=== PATIENT | male | born 1945 | race Caucasian/White ===

== ENCOUNTER 2016-07-19 06:46 | Outpatient (CLI) | payer MEDICARE, BC ==
[2006-01-20 19:35] VITALS: BP 130/74
[2016-07-19] VITALS (10 sets, daily range): BP systolic 117–144; BP diastolic 70–84; PULSE 60–75; TEMP 97.2
[~2016-07-19] VITALS: Ht 177.8 cm; Wt 100.0 kg
[~2016-07-19 06:46] MED LIST: ALLOPURINOL300 MG PO; ASPIRIN 81M81 MG/TA2 PO; ASPIRIN E.C. 8181 MG PO; ASPIRIN EXTRA500 M1 PO; AVANDAMET; AVANDIA2 MG PO; AVODART 0.5MG0.5 MG PO; BEELITH; BEELITH PO; CELEBREX 200MG200 MG PO; CENTRUM1 TAB PO; CRESTOR40 MG PO; DOXYCYCLINE 10100 MG PO; FINASTERIDE5 MG PO; GLUCOPHAGE500 MG/TAB PO; GLUCOSAMINE & C1 CA1 PO; IBUPRIN200 MG PO; LASIX 40MG TABL40 MG PO; LIQUID MAGNESI400 MG PO; METFORMIN HCL500 MG PO; NATURAL MAGNES200 MG PO; NORCO 325 MG-7.1 TAB PO; PERCOCET 325 MG1 TA2 PO; PRAVACHOL80 MG PO; PRILOSEC 20MG20 MG PO; PROSCAR 5MG5 MG PO; PROTONIX 40MG T40 MG PO; ULTRAM 50MG TAB50 MG PO; VITAMIN B610 MG PO; VITAMIN C500 MG PO; VITAMIN D 1001000 IU PO; VITAMIN D32000 IU PO; XARELTO10 MG PO; ZYLOPRIM 300MG300 MG PO
[2016-07-19 07:48] LABS: INR 1.6 (0.8-3.0); PROTHROMBIN TIME 17.9 SECONDS (9.7-12.8)
[2016-07-19 07:58] LABS: CREATININE, serum 0.85 mg/dL (0.66-1.25); POTASSIUM 4.2 mmol/L (3.4-5.0)
[2016-07-19 08:02] LABS: HEMATOCRIT 38.7 % (42.0-52.0); MEAN CELL VOLUME 93 fl (80.0-100.0); MEAN CORPUSCULAR HEMOGLOBIN 31 pg (27.0-31.0); MEAN CORPUSCULAR HGB CONC 34 g/dl (33.0-37.0); MEAN PLATELET VOLUME 9.5 fl (7.4-10.4); PLATELET COUNT 169 K/mm3 (130-400); RED BLOOD COUNT 4.17 M/mm3 (4.20-5.60); REDCELL DISTRIBUTION WIDTH-CV 13.9 % (11.5-14.5)
[2016-07-19] MEDS ORDERED: LIPITOR 40MG TA40 MG PO (08:15)
[2016-07-19] MEDS ORDERED: IMIQUIMOD5% TP (08:21)
[2016-07-19] MEDS ORDERED: NEURONTIN300 MG/CAP PO (08:22)
[2016-07-19] MEDS ORDERED: ELIQUIS 5MG PO (10:06)
== END 2016-07-19 10:35 | disposition home or self-care (01) ==
LOC: COL.RAD 06:46
PROVIDERS: Internal Medicine Cardiovascular Disease
DX: I51.0 Cardiac septal defect, acquired (principal); I37.1 Nonrheumatic pulmonary valve insufficiency; R94.31 Abnormal electrocardiogram [ECG] [EKG]
CPT/HCPCS: J2704

== ENCOUNTER 2017-03-28 09:30 | Outpatient (RCR) | payer MEDICARE, BC ==
[~2017-03-28 09:30] MED LIST changes: +ELIQUIS 5MG PO; +IMIQUIMOD5% TP; +LIPITOR 40MG TA40 MG PO; +NEURONTIN300 MG/CAP PO
== END 2017-03-30 10:50 | disposition home or self-care (01) ==
LOC: WSPT 09:30
DX: M54.5 Low back pain (principal)
CPT/HCPCS: G8978-GP; G8979-GP; G8980-GP

== ENCOUNTER → 2018-08-02 | Outpatient (CLI) | payer MEDICARE, BC | LOC: COL.RAD 13:33 | DX: M16.11 Unilateral primary osteoarthritis, right hip (principal); Z96.642 Presence of left artificial hip joint ==

== ENCOUNTER 2018-10-04 08:56 | Emergency (ER) | payer MEDICARE, BC ==
[2006-01-20 19:35] VITALS: BP 130/74
[~2018-10-04] VITALS: Ht 177.8 cm; Wt 113.6 kg
[2018-10-04 09:01] VITALS: BP 130/80
[2018-10-04] MEDS ORDERED: CRESTOR40 MG PO (09:50)
[2018-10-04] MEDS ORDERED: PRAVACHOL80 MG PO (09:51)
[2018-10-04] MEDS ORDERED: GLUCOPHAGE500 MG/TAB PO (09:51)
[2018-10-04] MEDS ORDERED: AVANDIA2 MG PO (09:52)
[2018-10-04] MEDS ORDERED: MULTI VITAMINS1 TAB PO (09:53)
[2018-10-04 10:06] LABS: STREP SCREEN NEGATIVE
[2018-10-04 11:16] LABS: ALBUMIN 4.2 gm/dL (3.5-5.0); BILIRUBIN,TOTAL 0.7 mg/dL (0.0-1.0); CALCIUM 9.8 mg/dL (8.4-10.2); CREATININE, serum 0.92 (0.66-1.25); POTASSIUM 4.6 mmol/L (3.4-5.0); TOTAL PROTEIN 7.9 gm/dL (6.4-8.2)
[2018-10-04 11:26] LABS: BASO # 0.1 (0.0-0.2); BASO % 0.7 % (0.0-2.0); EOS # 0.5 (0.0-0.7); GRAN # 6.9 (1.4-6.5); GRAN % 58.2 % (42.2-75.2); HEMATOCRIT 49.4 % (42.0-52.0); HEMOGLOBIN 16.3 g/dl (13.5-18.0); LYMPH # 3.4 (1.2-3.4); LYMPH % 28.6 % (20.0-51.0); MEAN CELL VOLUME 87 fl (80.0-100.0); MEAN CORPUSCULAR HEMOGLOBIN 29 pg (27.0-31.0); MEAN CORPUSCULAR HGB CONC 33 g/dl (33.0-37.0); MEAN PLATELET VOLUME 9.6 fl (7.4-10.4); MONO % 8.2 % (1.7-9.3); PLATELET COUNT 198 K/mm3 (130-400); RED BLOOD COUNT 5.67 M/mm3 (4.20-5.60); REDCELL DISTRIBUTION WIDTH-CV 19.1 % (11.5-14.5)
[2018-10-04] MEDS ORDERED: DOXYCYCLINE 10100 MG PO (11:44)
[2018-10-04] MEDS ORDERED: TESSALON PERLE200 MG PO (11:44)
[2018-10-04 12:14] VITALS: PULSE 85; TEMP 97.4
== END 2018-10-04 12:14 | disposition home or self-care (01) ==
LOC: COL.ER 08:56
PROVIDERS: Physician Assistant
DX: J20.9 Acute bronchitis, unspecified (principal); J02.9 Acute pharyngitis, unspecified; E11.9 Type 2 diabetes mellitus without complications; I10 Essential (primary) hypertension; Z79.84 Long term (current) use of oral hypoglycemic drugs; Z87.891 Personal history of nicotine dependence; Z86.73 Personal history of transient ischemic attack (TIA), and cerebral infarction without residual deficits; Z88.5 Allergy status to narcotic agent; Z98.890 Other specified postprocedural states; Z79.82 Long term (current) use of aspirin
CPT/HCPCS: J1885

== ENCOUNTER → 2019-12-08 | Outpatient (CLI) | payer MEDICARE, BC ==
[~2019-12-08] MED LIST changes: +MULTI VITAMINS1 TAB PO; +TESSALON PERLE200 MG PO
== END ==
LOC: DIA.ED
DX: E11.9 Type 2 diabetes mellitus without complications (principal); E66.8 Other obesity; Z79.4 Long term (current) use of insulin

== ENCOUNTER → 2019-12-09 | Outpatient (CLI) | payer MEDICARE, BC | LOC: COL.RAD 10:07 | DX: M48.061 Spinal stenosis, lumbar region without neurogenic claudication (principal); M51.36 Other intervertebral disc degeneration, lumbar region; M47.816 Spondylosis without myelopathy or radiculopathy, lumbar region; M47.817 Spondylosis without myelopathy or radiculopathy, lumbosacral region; Z98.1 Arthrodesis status | CPT/HCPCS: A9585 ==

== ENCOUNTER → 2020-05-03 | Outpatient (CLI) | payer MEDICARE, BC | LOC: DIA.ED 03-29 08:07 | DX: E11.9 Type 2 diabetes mellitus without complications (principal); Z79.84 Long term (current) use of oral hypoglycemic drugs; E66.8 Other obesity; Z68.36 Body mass index [BMI] 36.0-36.9, adult | CPT/HCPCS: G0270 ==

== ENCOUNTER → 2020-05-31 | Outpatient (CLI) | payer MEDICARE, BC ==
[~2020-05-31] MED LIST changes: +CARTIA XT180 MG PO; +GLUCOPHAGE XR500 M1 PO; +PLAVIX 75MG TAB75 MG PO; +TRELEGY ELLIPT1 EACH IH; +TRESIBA FL100 UNIT/1 SQ; +TYLENOL W/COD1 UDTAB PO
== END ==
LOC: DIA.ED
DX: E11.9 Type 2 diabetes mellitus without complications (principal); Z79.4 Long term (current) use of insulin
CPT/HCPCS: G0108

== ENCOUNTER → 2020-09-27 | Outpatient (CLI) | payer MEDICARE, BC | LOC: DIA.ED 08:57 | DX: E11.59 Type 2 diabetes mellitus with other circulatory complications (principal); Z79.4 Long term (current) use of insulin; E66.8 Other obesity | CPT/HCPCS: G0270 ==

== ENCOUNTER 2020-12-29 17:07 | Emergency (ER) | payer MEDICARE, BC ==
[~2020-12-29] VITALS: Ht 177.8 cm; Wt 118.2 kg
[~2020-12-29 17:07] MED LIST changes: -CARTIA XT180 MG PO; -GLUCOPHAGE XR500 M1 PO; -PLAVIX 75MG TAB75 MG PO; -TRELEGY ELLIPT1 EACH IH; -TRESIBA FL100 UNIT/1 SQ; -TYLENOL W/COD1 UDTAB PO
[2020-12-29 17:42] LABS: BASO # 0.1 (0.0-0.2); BASO % 0.5 % (0.0-2.0); EOS # 0.2 (0.0-0.7); EOS % 2.1 % (0-4.0); GRAN # 6.9 (1.4-6.5); HEMOGLOBIN 17.9 g/dl (13.5-18.0); LYMPH # 2.2 (1.2-3.4); LYMPH % 21.3 % (20.0-51.0); MEAN CELL VOLUME 84 fl (80.0-100.0); MEAN CORPUSCULAR HEMOGLOBIN 27 pg (27.0-31.0); MEAN CORPUSCULAR HGB CONC 33 g/dl (33.0-37.0); MONO % 9.5 % (1.7-9.3); PLATELET COUNT 242 K/mm3 (130-400); RED BLOOD COUNT 6.53 M/mm3 (4.20-5.60); REDCELL DISTRIBUTION WIDTH-CV 18.6 % (11.5-14.5)
[2020-12-29 17:44] LABS: HEMATOCRIT 54.5 % (42.0-52.0)
[2020-12-29 17:53] LABS: ALANINE AMINOTRANSFERASE 48 U/L (4-49); ALKALINE PHOSPHATASE 64 U/L (50-136); ANION GAP 7 mmol/L (7-16); AST,SGOT 29 U/L (15-37); BILIRUBIN,TOTAL 0.4 mg/dL (0.0-1.0); BLOOD UREA NITROGEN 21 mg/dL (9-20); CALCIUM 9.4 mg/dL (8.4-10.2); CARBON DIOXIDE 27 mmol/L (22-30); CHLORIDE 102 mmol/L (98-107); CREATININE, serum 1.11 (0.66-1.25); GLUCOSE 157 mg/dL (74-106); POTASSIUM 4.5 mmol/L (3.4-5.0); SODIUM 136 mmol/L (137-145); TOTAL PROTEIN 7.5 gm/dL (6.4-8.2)
[2020-12-29 18:14] LABS: TROPONIN-I < 0.012 ng/mL (0.000-0.035)
[2020-12-29] MEDS ORDERED: TYLENOL W/COD1 UDTAB PO (20:45)
[2020-12-29 20:50] VITALS: BP 165/89; PULSE 74; TEMP 98.4
[2020-12-30] MEDS ORDERED: TRELEGY ELLIPT1 EACH IH (05:25)
[2020-12-30] MEDS ORDERED: TRESIBA FL100 UNIT/1 SQ (05:26)
[2020-12-30] MEDS ORDERED: PLAVIX 75MG TAB75 MG PO (05:26)
[2020-12-30] MEDS ORDERED: PRILOSEC 20MG20 MG PO (05:29)
[2020-12-30] MEDS ORDERED: GLUCOPHAGE XR500 M1 PO (05:29)
[2020-12-30] MEDS ORDERED: CARTIA XT180 MG PO (06:02)
[2020-12-30] MEDS ORDERED: ELIQUIS 5MG PO (06:03)
== END 2020-12-29 20:30 | disposition home or self-care (01) ==
LOC: COL.ER 17:07
PROVIDERS: Personal Emergency Response Attendant
DX: R07.2 Precordial pain (principal); E78.5 Hyperlipidemia, unspecified; I10 Essential (primary) hypertension; Z86.73 Personal history of transient ischemic attack (TIA), and cerebral infarction without residual deficits; Z79.899 Other long term (current) drug therapy
CPT/HCPCS: J2405; J3010; Q9967

== ENCOUNTER 2020-12-30 03:38 | Observation (INO) | payer MEDICARE, BC ==
[2006-01-20 19:35] VITALS: BP 130/74
[2020-12-30] VITALS (217 sets, daily range): BP systolic 112–134; BP diastolic 56–79; PULSE 70–84; TEMP 97.9–99.1; O2SAT 84–98
[~2020-12-30] VITALS: Ht 177.8 cm; Wt 113.0 kg
[~2020-12-30 03:38] MED LIST changes: +TYLENOL W/COD1 UDTAB PO
[2020-12-30 04:05] LABS: BASO # 0.1 (0.0-0.2); BASO % 0.7 % (0.0-2.0); EOS # 0.3 (0.0-0.7); EOS % 2.9 % (0-4.0); GRAN % 63.5 % (42.2-75.2); HEMATOCRIT 56.3 % (42.0-52.0); HEMOGLOBIN 18.5 g/dl (13.5-18.0); LYMPH # 2.1 (1.2-3.4); LYMPH % 21.7 % (20.0-51.0); MEAN CELL VOLUME 85 fl (80.0-100.0); MEAN CORPUSCULAR HEMOGLOBIN 28 pg (27.0-31.0); MEAN CORPUSCULAR HGB CONC 33 g/dl (33.0-37.0); MEAN PLATELET VOLUME 9.9 fl (7.4-10.4); MONO % 10.7 % (1.7-9.3); PLATELET COUNT 224 K/mm3 (130-400); RED BLOOD COUNT 6.63 M/mm3 (4.20-5.60); REDCELL DISTRIBUTION WIDTH-CV 18.6 % (11.5-14.5)
[2020-12-30 04:35] LABS: ARTERIAL BLOOD GAS BASE EXCESS 1.3 (-2-2)
[2020-12-30 04:36] LABS: ARTERIAL BLOOD GAS HCO3 24.2 meq/L (22-26); ARTERIAL BLOOD GAS PCO2 41.1 mmHg (35-45); ARTERIAL BLOOD GAS PO2 70.7 mmHg (80-100); ARTERIAL BLOOD GAS pH 7.38 (7.35-7.45)
[2020-12-30 04:37] LABS: ARTERIAL BLD GAS TCO2 CT 25.5
[2020-12-30 04:55] LABS: ALANINE AMINOTRANSFERASE 37 U/L (4-49); ALBUMIN 3.1 gm/dL (3.5-5.0); ALKALINE PHOSPHATASE 45 U/L (50-136); ANION GAP 4 mmol/L (7-16); AST,SGOT 23 U/L (15-37); BILIRUBIN,TOTAL 0.5 mg/dL (0.0-1.0); BLOOD UREA NITROGEN 18 mg/dL (9-20); CALCIUM 8.1 mg/dL (8.4-10.2); CARBON DIOXIDE 28 mmol/L (22-30); CHLORIDE 105 mmol/L (98-107); CREATININE, serum 1.09 (0.66-1.25); GLUCOSE 135 mg/dL (74-106); POTASSIUM 4.4 mmol/L (3.4-5.0); SODIUM 137 mmol/L (137-145); TOTAL PROTEIN 6.1 gm/dL (6.4-8.2)
[2020-12-30 05:07] LABS: TROPONIN-I < 0.012 ng/mL (0.000-0.035)
[2020-12-30] MEDS ORDERED: TRELEGY ELLIPT1 EACH IH (05:25)
[2020-12-30] MEDS ORDERED: TRESIBA FL100 UNIT/1 SQ (05:26)
[2020-12-30] MEDS ORDERED: PLAVIX 75MG TAB75 MG PO (05:26)
[2020-12-30] MEDS ORDERED: GLUCOPHAGE XR500 M1 PO (05:29)
[2020-12-30] MEDS ORDERED: PRILOSEC 20MG20 MG PO (05:29)
[2020-12-30] MEDS ORDERED: CARTIA XT180 MG PO (06:02)
[2020-12-30] MEDS ORDERED: ELIQUIS 5MG PO (06:03)
[2020-12-30 07:46] LABS: CHOLESTEROL 127 mg/dL (120-200); CHOLESTEROL RISK RATIO 3.3; HDL CHOLESTEROL 38 mg/dL; LDL CHOLESTEROL 63 mg/dL; MAGNESIUM 2.3 mg/dL (1.6-2.3); TRIGLYCERIDE 130 mg/dL
--- NOTE | 2020-12-30 12:15 | NUR ---
Pt off unit for stress-test
--- NOTE | 2020-12-30 13:38 | NUR ---
Pt back and tolerated Lexiscan well, no complaints at this time. MD Jessica notifed pt back. Pt educated on potential plans of care depending on results of scan. No further questions
--- NOTE | 2020-12-30 14:38 | NUR ---
[employer]os[employer] Dis[employer] Manager met with patient and patient's , Terri (ph#[phone]) who is at bedside to discuss discharge planning. Patient lives outside of [place] with his and sees Dr. Sequeira for primary care. Patient obtains medications from [facility] with no difficulties. Patient uses a CPAP from [employer] and no other DME. Patient does not normally use oxygen however is currently requiring it. Patient reports independence with ADLS and plans to return home upon discharge. Patient does not have Advance Directives and is not interested in completing DPOA at this time. Discharge Plan: Home
--- NOTE | 2020-12-30 18:25 | NUR ---
Pt transfered to [facility] via wheelchair without difficulty. Pt independent in room
--- NOTE | 2020-12-30 19:30 | NUR ---
Patient states he came to the medical unit at 1800. RIght now he is alert and oriented x 4. Denies nausea and vomiting but pain in stomac 08/16. Will Check later with medications and full assessment.
--- NOTE | 2020-12-30 20:00 | NUR ---
Patient is resting in bed, alert and oriented x 4, complains of pain in the stomach, high in the abdomen, rated 6/10, Morphine provided. RT started 2L of , since O2 levels were in higher 80's. Assessment completed, meds provided, no further needs at this time. Call light within reach.
[2020-12-31] VITALS (7 sets, daily range): BP systolic 131–154; BP diastolic 60–75; PULSE 63–77; TEMP 97.8–99.1
--- NOTE | 2020-12-31 07:17 | NUR ---
Patient has had a calm night. He indicates his pain is under control with morphine. Just one dose was provided at night. His complain is about having a bowel movement. Supository was offered but he denied. Shift report given to day nurse.
[2020-12-31 08:15] LABS: HEMOGLOBIN 17.3 g/dl (13.5-18.0); MEAN CELL VOLUME 88 fl (80.0-100.0); MEAN CORPUSCULAR HEMOGLOBIN 27 pg (27.0-31.0); MEAN CORPUSCULAR HGB CONC 31 g/dl (33.0-37.0); MEAN PLATELET VOLUME 9.6 fl (7.4-10.4); PLATELET COUNT 200 K/mm3 (130-400); RED BLOOD COUNT 6.38 M/mm3 (4.20-5.60); REDCELL DISTRIBUTION WIDTH-CV 18.8 % (11.5-14.5)
[2020-12-31 08:25] LABS: HEMATOCRIT 56.3 % (42.0-52.0)
[2020-12-31 08:36] LABS: CALCIUM 9.4 mg/dL (8.4-10.2); CREATININE, serum 1.05 mg/dL (0.72-1.25); POTASSIUM 4.2 mmol/L (3.5-4.5)
--- NOTE | 2020-12-31 09:12 | NUR ---
Patient resting in bed upon entrance to room. Fluids running as ordered. Scheduled medications given. Shift assessment preformed. Patient C/O pressure in his abdomen and buring in his rectum. Bowel sounds present in all four quadrants. Stomach firm in BUQ. Miralax and ducosate given. Patient currently requiring 3L of O2 via nasal cannula. Patient denies any further pain, discomfort, Chest pain, or further needs at this time. Call light in reach. VSS. Patient A&O.
--- NOTE | 2020-12-31 12:40 | NUR ---
First visit from the branch office administrator. No needs right now.
--- NOTE | 2020-12-31 19:00 | NUR ---
Stool softners administered as ordered. Patient reports having one small stool, but still feels pressure in abdomen. Patient encouraged to walk around, no results from this. Soapsuds enema given as ordered. Patient did not tolerate well. Small BM resulted. Report handed off to Renea on site head.
--- NOTE | 2020-12-31 22:00 | NUR ---
Patient is alert and oriented x 4, VSS, enema applied at 1999. He had a medium BM and loose stools. Still Abdomen is distended and patient decided to stay another night. Tele in place, Asseessmet completed. No further needs at this time. Call light within reach.
[2021-01-01 00:12] VITALS: BP 142/83; PULSE 70; TEMP 98.3
--- NOTE | 2021-01-01 03:14 | NUR ---
Patient reported had a 2nd bowel movement. Large quantity very loose. Abdomen still distended. Patient states he is passing gases. Denies pain. Continue monitoring.
[2021-01-01 04:54] VITALS: BP 143/60; PULSE 67; TEMP 98.3
--- NOTE | 2021-01-01 06:35 | NUR ---
Patient has had a calm night. No other BM reported. Denies pain. No further needs at this time. Shift report will be given to day nurse.
[2021-01-01 07:32] VITALS: BP 137/75; PULSE 70; TEMP 98.3
--- NOTE | 2021-01-01 07:57 | NUR ---
Scheduled medications given. Shift assesment preformed. Patient reports having 1 large BM and 2 small BM's last pm. Report 2 more this am. Patient states that he is feeling much better and is ready to go home. Bowel sounds present in all four quadrants, abdomen soft upon palpation. VSS. Patient A&O. Call light in reach.
[2021-01-01 11:01] VITALS: BP 146/71; PULSE 74; TEMP 97.9
--- NOTE | 2021-01-01 13:59 | NUR ---
Patient deemed fit for discharge. Discharge instructions/Education given. All questions answered. IV DC'd, no signs of phelbitis, catheter intact. VSS. Patient denies any pain, discomfort, or further needs at this time. Patient escorted from building by [facility] Staff via wheelchair. transporting home.
== END 2021-01-01 13:30 | disposition home or self-care (01) ==
LOC: COL.ER 03:38 → ICU 05:22 → MEDICAL 19:28
PROVIDERS: Emergency Medicine; Internal Medicine; Nurse Practitioner Family; ADMIT Family Medicine
DX: R07.89 Other chest pain (principal); K59.00 Constipation, unspecified; I95.9 Hypotension, unspecified; I10 Essential (primary) hypertension; E78.5 Hyperlipidemia, unspecified; J96.21 Acute and chronic respiratory failure with hypoxia; I48.91 Unspecified atrial fibrillation; I63.9 Cerebral infarction, unspecified; E11.9 Type 2 diabetes mellitus without complications; G47.33 Obstructive sleep apnea (adult) (pediatric); K21.9 Gastro-esophageal reflux disease without esophagitis; Z85.51 Personal history of malignant neoplasm of bladder; Z99.89 Dependence on other enabling machines and devices; Z79.899 Other long term (current) drug therapy; Z79.01 Long term (current) use of anticoagulants; Z79.4 Long term (current) use of insulin; Z79.82 Long term (current) use of aspirin; Z87.891 Personal history of nicotine dependence; Z20.822 Contact with and (suspected) exposure to COVID-19; Z80.8 Family history of malignant neoplasm of other organs or systems
CPT/HCPCS: A9500; G0378; J1815; J2270; J2785; J7030

== ENCOUNTER 2021-01-26 08:16 | Outpatient (RCR) | payer MEDICARE, BC ==
[~2021-01-26 08:16] MED LIST changes: +CARTIA XT180 MG PO; +GLUCOPHAGE XR500 M1 PO; +PLAVIX 75MG TAB75 MG PO; +TRELEGY ELLIPT1 EACH IH; +TRESIBA FL100 UNIT/1 SQ
== END 2021-04-08 | disposition home or self-care (01) ==
LOC: WSST
DX: R13.10 Dysphagia, unspecified (principal)

== ENCOUNTER → 2021-03-14 | Outpatient (CLI) | payer MEDICARE, BC | LOC: DIA.ED 09:15 | DX: E11.65 Type 2 diabetes mellitus with hyperglycemia (principal); Z79.4 Long term (current) use of insulin | CPT/HCPCS: G0270 ==

== ENCOUNTER 2021-03-23 07:09 | Day surgery (SDC) | payer MEDICARE, BC ==
[2006-01-20 19:35] VITALS: BP 130/74
[~2021-03-23] VITALS: Ht 177.8 cm; Wt 115.1 kg
[2021-03-23 07:56] VITALS: BP 107/67; PULSE 73
[2021-03-23 08:06] VITALS: BP 161/96; PULSE 74; TEMP 97.6
[2021-03-23 08:37] VITALS: BP 87/66; PULSE 77
[2021-03-23 08:45] VITALS: BP 135/89; PULSE 69
[2021-03-23 09:00] VITALS: BP 148/82; PULSE 71
[2021-03-23 09:15] VITALS: BP 143/79; PULSE 73
--- NOTE | 2021-03-23 09:43 | NUR ---
0838 Pt returns from endo procedure via cart and RN assist to [facility] [place] [facility]. Pt ambulates from cart to recliner with RN assist. Monitors on and alarms set. Call light within reach. Report received from ADEN Ward. Pt alert and oriented. Pt requests juice and muffin. Pt denies any pain or nausea. Pt's present in room. 0850 Pt taking food and drink well. No complications noted. 0940 Discharge instructions given to pt and . All questions answered to their satisfaction. Handed to pt are a thank you card and discharge information. 0943 Pt transferred out of the hospital via wheelchair and this RN assist, to private vehicle driven by pt's .
== END 2021-03-23 09:43 | disposition home or self-care (01) ==
LOC: SDCO 07:09
DX: K29.30 Chronic superficial gastritis without bleeding (principal); K22.4 Dyskinesia of esophagus; K44.9 Diaphragmatic hernia without obstruction or gangrene; K31.7 Polyp of stomach and duodenum; K21.9 Gastro-esophageal reflux disease without esophagitis; R93.3 Abnormal findings on diagnostic imaging of other parts of digestive tract; I10 Essential (primary) hypertension; I48.91 Unspecified atrial fibrillation; E78.5 Hyperlipidemia, unspecified; E11.9 Type 2 diabetes mellitus without complications; M19.90 Unspecified osteoarthritis, unspecified site; G47.33 Obstructive sleep apnea (adult) (pediatric); Z86.73 Personal history of transient ischemic attack (TIA), and cerebral infarction without residual deficits; Z85.51 Personal history of malignant neoplasm of bladder; Z79.82 Long term (current) use of aspirin; Z79.899 Other long term (current) drug therapy; Z79.01 Long term (current) use of anticoagulants; Z79.891 Long term (current) use of opiate analgesic; Z79.4 Long term (current) use of insulin; Z79.84 Long term (current) use of oral hypoglycemic drugs
CPT/HCPCS: J2704; J7030

== ENCOUNTER → 2021-09-12 | Outpatient (CLI) | payer MEDICARE, BC | LOC: DIA.ED 09:57 | DX: E11.65 Type 2 diabetes mellitus with hyperglycemia (principal); Z79.4 Long term (current) use of insulin; I10 Essential (primary) hypertension | CPT/HCPCS: G0108 ==

== ENCOUNTER → 2023-04-04 | Outpatient (CLI) | payer MEDICARE, BC ==
[2006-01-20 19:35] VITALS: BP 130/74
[~2023-04-04] VITALS: Ht 177.8 cm; Wt 116.0 kg
[~2023-04-04] MED LIST changes: +CIALIS5 MG PO; +COLACE 100100 MG/CAP PO; +DEPO-TESTOS200 MG/M1 INJ; +DOSTINEX0.5 MG/TAB PO; +FLEXERIL 1010 MG/TAB PO; +FLOMAX 0.40.4 MG/CAP PO; +GLUCOSAMIN 500 PO; +IRON TABLETS325 MG PO; +LIPITOR 80MG80 MG PO; +MS CONTIN 115 MG/TAB PO; +NAPROXEN 3375 MG/TAB PO; +NORVASC 5MG5 MG/TAB PO; +PRESERVISION1 SGL PO; +PROAIR HFA0.09 MG/AC IH; +TYLENOL 325MG325 MG PO; +VALIUM 5MG T5 MG/TAB PO; +VITAMIN D31000 I1 PO
[2023-04-04 09:32] VITALS: BP 165/89; PULSE 72; TEMP 97.9
[2023-04-04 10:45] VITALS: BP 167/84; PULSE 74
--- NOTE | 2023-04-04 11:15 | NUR ---
pt reports legs continue to tingle. Pt will continue to be monitored at this time for another 30 minutes.
--- NOTE | 2023-04-04 11:45 | NUR ---
Pt has difficulty attempting to stand. Pt unable to take steps. Pt also reports tingling continues in lower legs.
--- NOTE | 2023-04-04 12:22 | NUR ---
Pt able to stand slowly. Pt unable to move legs at this time to take steps and is very wobbly.
--- NOTE | 2023-04-04 12:28 | NUR ---
Dr Jay informed of pts weakness and pt unable to take a step. Dr Jay stated to continue to monitor pt. Pt given apple juice to drink.
--- NOTE | 2023-04-04 13:00 | NUR ---
Pt standing up to much better. Pt able to walk several steps without being wobbly. Pt walks to wheelchair with assistance of one. 1315 Pt outto car per wheelchair. Pt up and into car with assistance of one. Pts reports this is his normal walk with shuffling steps.
== END ==
LOC: COL.RAD 08:57
DX: M54.50 Low back pain, unspecified (principal)
CPT/HCPCS: J0665; J3301

== ENCOUNTER 2023-05-07 08:15 | Outpatient (RCR) | payer MEDICARE, BC | END 2023-05-09 | disposition home or self-care (01) | LOC: WSPT | DX: M54.50 Low back pain, unspecified (principal) ==

== ENCOUNTER → 2023-06-07 | Outpatient (RCR) | payer MEDICARE, BC | END | disposition home or self-care (01) | LOC: WSPT | DX: M54.50 Low back pain, unspecified (principal) ==

== ENCOUNTER 2023-06-28 08:15 | Outpatient (RCR) | payer MEDICARE, BC | END 2023-07-08 | disposition home or self-care (01) | LOC: WSPT | DX: M54.50 Low back pain, unspecified (principal) ==